=== PATIENT | female | born 1945 | race Caucasian/White ===

== ENCOUNTER 2017-08-10 19:31 | Inpatient (IN) | payer MEDICARE ==
[~2017-08-10] VITALS: Ht 162.6 cm; Wt 66.9 kg
[~2017-08-10 19:31] MED LIST: ACET325T14 PO; ASPI-621 PO; ASPI-682 PO; CEFD300C37 PO; CHOL400T2 PO; CYAN10005 PO; DOXY100T PO; ENOX40SY4 SQ; ERTA1VIA IV; FAMO-79 PO; HYDR-3240 PO; LEVE100020 PO; LEVE500T53 PO; MAGN400T26 PO; MULT1TAB76 PO; PRED20TA PO; SIMV40TA PO; SIMV40TA3 PO; VALP250C59 PO; ZONI50CA2 PO
[2017-08-10] MEDS ORDERED: ACETAMINOPHEN 325 MG TABLET PO PRN (22:00)
[2017-08-10] MEDS ORDERED: BISACODYL 10 MG SUPP PR PRN (22:00)
[2017-08-10] MEDS ORDERED: hydrALAzine 20 MG/ML, 1ML IVPush PRN (22:00)
[2017-08-10] MEDS ORDERED: ONDANSETRON 2MG/ML, 2ML IVPush PRN (22:00)
[2017-08-10] MEDS ORDERED: OXYcodone IR 5MG TABLET PO PRN (22:00)
[2017-08-10] MEDS ORDERED: POLYETHYLENE GLYCOL 17 GM PACKET PO PRN (22:00)
[2017-08-10] MEDS ORDERED: ENALAPRILAT 1.25 MG/ML, 2ML IVPush PRN (22:00)
[2017-08-10] MEDS ORDERED: LABETALOL 5MG/ML, 20ML IVPush PRN (22:00)
[2017-08-10] MEDS ORDERED: morphine SULFATE 10 MG/ML, 1ML IVPush PRN (22:00)
[2017-08-10] MEDS: PLEASE ENTER HEIGHT AND WEIGHT MC SCH (22:00)
[2017-08-10] MEDS: SIMVASTATIN 40 MG TABLET PO SCH (22:47)
[2017-08-10] MEDS: LEVETIRACETAM 500 MG TABLET PO SCH (22:48)
[2017-08-10 22:54] LABS: HEMOGLOBIN A1C 5.8 % (4.2-6.3)
[2017-08-10 22:56] LABS: FREE T4 (FREE THYROXINE) 0.87 ng/dL (0.76-1.46); THYROID STIMULATING HORMONE 2.01 mIU/L (0.358-3.740)
[2017-08-10] MEDS ORDERED: MAGNESIUM SULFATE PMX 2GM/50ML 50 ML IV ONE (23:00)
[2017-08-10 23:15] LABS: ANION GAP 11 mmol/L (5-15); CALCIUM 8.5 mg/dL (8.5-10.1); CHLORIDE 107 mmol/L (98-107); CREATININE 0.72 mg/dL (0.55-1.02)
[2017-08-10 23:27] LABS: MD YES; MEAN CORPUSCULAR HEMOGLOBIN 33.7 pg (27.0-34.8); MEAN CORPUSCULAR HGB CONC 33.7 g/dL (32.4-35.8); MEAN PLATELET VOLUME 10.3 fL (7.4-10.4); PLATELET COUNT 121 x10^3/uL (130-400); RED BLOOD COUNT 3.91 x10^6/uL (3.82-5.3); RED CELL DISTRIBUTION WIDTH 13.7 % (9.6-15.2)
[2017-08-10 23:29] LABS: ANISOCYTOSIS 1+; BAND#(MANUAL) 0.27 x10^3/uL; BANDS%(MANUAL) 2 % (0-7); LYMPH#(MANUAL) 3.56 x10^3/uL (1-3.4); LYMPHS% (MANUAL) 26 % (22-44); MONOS#(MANUAL) 0.41 x10^3/uL (0.3-2.7); MONOS% (MANUAL) 3 % (2-9); REACTIVE LYMPHS # (MANUAL) 0.41 x10^3/uL (0-0); REACTIVE LYMPHS % (MANUAL) 3 % (0-0); SEG#(MANUAL) 9.04 x10^3/uL (1.8-6.8); SEGS% (MANUAL) 66 % (42-75)
[2017-08-10 23:31] LABS: <PLATELET ESTIMATE> ADEQUATE; <PLT MORPHOLOGY> NORMAL PLT MORPH
[2017-08-11 04:00] VITALS: BP 113/61
[2017-08-11 04:39] LABS: BASOPHILS # (AUTO) 0.05 x10^3/uL (0-0.1); BASOPHILS % (AUTO) 0 % (0-1); EOSINOPHILS # (AUTO) 0.07 x10^3/uL (0-0.4); EOSINOPHILS % (AUTO) 1 % (1-7); LYMPHOCYTES # (AUTO) 3.71 x10^3/uL (1-3.4); LYMPHOCYTES % (AUTO) 28 % (22-44); MD NO; MEAN CORPUSCULAR HEMOGLOBIN 33.4 pg (27.0-34.8); MEAN CORPUSCULAR HGB CONC 33.7 g/dL (32.4-35.8); MEAN CORPUSCULAR VOLUME 99.2 fL (80-100); MEAN PLATELET VOLUME 9.8 fL (7.4-10.4); MONOCYTES # (AUTO) 1.42 x10^3/uL (0.2-0.8); MONOCYTES % (AUTO) 11 % (2-9); NEUTROPHILS # (AUTO) 7.93 x10^3/uL (1.8-6.8); NEUTROPHILS % (AUTO) 60 % (42-75); PLATELET COUNT 213 x10^3/uL (130-400); RED BLOOD COUNT 3.56 x10^6/uL (3.82-5.3); RED CELL DISTRIBUTION WIDTH 13.8 % (9.6-15.2)
[2017-08-11 04:48] LABS: CHLORIDE 106 mmol/L (98-107)
[2017-08-11 04:55] LABS: ALANINE AMINOTRANSFERASE 12 U/L (12-78); ALBUMIN 3.1 g/dL (3.4-5.0); ALKALINE PHOSPHATASE 61 U/L (45-117); ANION GAP 9 mmol/L (5-15); BILIRUBIN,TOTAL 0.9 mg/dL (0.2-1.0); CALCIUM 8.5 mg/dL (8.5-10.1); CHOLESTEROL, TOTAL 136 mg/dL (140-239); CREATININE 0.63 mg/dL (0.55-1.02); HDL CHOLESTEROL (DIRECT) 58 mg/dL (40-60); TOTAL PROTEIN 6.7 g/dL (6.4-8.2); TRIGLYCERIDES 164 mg/dL (50-200); VLDL CHOLESTEROL 33 mg/dL (0-25)
[2017-08-11 04:56] LABS: CHOL/HDL RATIO 2.3; HDL CHOL % 43 % (28-40); LDL CHOLESTEROL,CALCULATED 45 mg/dL (54-169); LDL/HDL RATIO 0.8 (0.5-3.0)
[2017-08-11] MEDS: PLEASE ENTER HEIGHT AND WEIGHT MC SCH ×2 (06:00→07:18)
[2017-08-11] MEDS ORDERED: CHOLECALCIFEROL 400 UNITS TABLET PO SCH (09:00)
[2017-08-11] MEDS: FAMOTIDINE 20 MG TABLET PO SCH ×2 (09:00→21:01)
[2017-08-11] MEDS: FAMOTIDINE 20 MG/2 ML IVPush SCH ×2 (09:05→21:00)
[2017-08-11] MEDS: LEVETIRACETAM 500 MG TABLET PO SCH ×2 (09:06→21:01)
[2017-08-11] MEDS: CYANOCOBALAMIN 1,000 MCG TABLET PO SCH (09:06)
[2017-08-11] MEDS: SENNA/DOCUSATE TABLET PO SCH (09:06)
[2017-08-11] MEDS: CHOLECALCIFEROL 1,000 UNIT TABLET PO SCH (09:07)
[2017-08-11] MEDS: MAGNESIUM OXIDE 400 MG TABLET PO SCH (09:07)
[2017-08-11] MEDS: DEXAMETHASONE 4 MG TABLET PO SCH ×3 (10:21→21:00)
[2017-08-11] MEDS: SIMVASTATIN 40 MG TABLET PO SCH (21:00)
[2017-08-12 04:00] VITALS: BP 123/65
[2017-08-12 04:31] LABS: BASOPHILS # (AUTO) 0.01 x10^3/uL (0-0.1); BASOPHILS % (AUTO) 0 % (0-1); EOSINOPHILS % (AUTO) 0 % (1-7); LYMPHOCYTES # (AUTO) 1.23 x10^3/uL (1-3.4); LYMPHOCYTES % (AUTO) 18 % (22-44); MD NO; MEAN CORPUSCULAR HEMOGLOBIN 33.7 pg (27.0-34.8); MEAN CORPUSCULAR HGB CONC 33.5 g/dL (32.4-35.8); MEAN CORPUSCULAR VOLUME 100.6 fL (80-100); MEAN PLATELET VOLUME 9.9 fL (7.4-10.4); MONOCYTES # (AUTO) 0.04 x10^3/uL (0.2-0.8); MONOCYTES % (AUTO) 1 % (2-9); NEUTROPHILS # (AUTO) 5.42 x10^3/uL (1.8-6.8); NEUTROPHILS % (AUTO) 81 % (42-75); PLATELET COUNT 201 x10^3/uL (130-400); RED BLOOD COUNT 3.99 x10^6/uL (3.82-5.3); RED CELL DISTRIBUTION WIDTH 13.7 % (9.6-15.2)
[2017-08-12 04:41] LABS: CHLORIDE 103 mmol/L (98-107)
[2017-08-12 04:50] LABS: ALANINE AMINOTRANSFERASE 12 U/L (12-78); ALBUMIN 3.2 g/dL (3.4-5.0); ALKALINE PHOSPHATASE 66 U/L (45-117); ANION GAP 7 mmol/L (5-15); CALCIUM 9.1 mg/dL (8.5-10.1); CREATININE 0.52 mg/dL (0.55-1.02); TOTAL PROTEIN 7.3 g/dL (6.4-8.2)
[2017-08-12 04:55] LABS: MICROSCOPIC AUTO
[2017-08-12 04:57] LABS: CULTURE INDICATED? YES
[2017-08-12] MEDS: SENNA/DOCUSATE TABLET PO SCH (09:00)
[2017-08-12] MEDS: DEXAMETHASONE 4 MG TABLET PO SCH ×3 (10:00→21:45)
[2017-08-12] MEDS: FAMOTIDINE 20 MG TABLET PO SCH ×2 (10:00→21:45)
[2017-08-12] MEDS: CYANOCOBALAMIN 1,000 MCG TABLET PO SCH (10:00)
[2017-08-12] MEDS: LEVETIRACETAM 500 MG TABLET PO SCH ×2 (10:00→21:45)
[2017-08-12] MEDS: CHOLECALCIFEROL 1,000 UNIT TABLET PO SCH (10:01)
[2017-08-12] MEDS: MAGNESIUM OXIDE 400 MG TABLET PO SCH (10:02)
[2017-08-12 19:30] VITALS: BP 123/87
[2017-08-12] MEDS: SIMVASTATIN 40 MG TABLET PO SCH (21:45)
[2017-08-13 02:58] VITALS: BP 91/60
[2017-08-13 05:46] LABS: ALBUMIN 3.1 g/dL (3.4-5.0); ANION GAP 9 mmol/L (5-15); CALCIUM 9.4 mg/dL (8.5-10.1); CHLORIDE 104 mmol/L (98-107)
[2017-08-13 05:50] LABS: ALANINE AMINOTRANSFERASE 17 U/L (12-78); ALKALINE PHOSPHATASE 63 U/L (45-117); BASOPHILS # (AUTO) 0.02 x10^3/uL (0-0.1); BASOPHILS % (AUTO) 0 % (0-1); BILIRUBIN,TOTAL 0.9 mg/dL (0.2-1.0); CREATININE 0.65 mg/dL (0.55-1.02); EOSINOPHILS % (AUTO) 0 % (1-7); LYMPHOCYTES # (AUTO) 1.13 x10^3/uL (1-3.4); LYMPHOCYTES % (AUTO) 8 % (22-44); MD NO; MEAN CORPUSCULAR HEMOGLOBIN 33.8 pg (27.0-34.8); MEAN CORPUSCULAR HGB CONC 33.4 g/dL (32.4-35.8); MEAN CORPUSCULAR VOLUME 100.9 fL (80-100); MEAN PLATELET VOLUME 9.8 fL (7.4-10.4); MONOCYTES # (AUTO) 0.24 x10^3/uL (0.2-0.8); MONOCYTES % (AUTO) 2 % (2-9); NEUTROPHILS # (AUTO) 13.32 x10^3/uL (1.8-6.8); NEUTROPHILS % (AUTO) 91 % (42-75); PLATELET COUNT 210 x10^3/uL (130-400); RED BLOOD COUNT 3.88 x10^6/uL (3.82-5.3); RED CELL DISTRIBUTION WIDTH 13.9 % (9.6-15.2); TOTAL PROTEIN 7.1 g/dL (6.4-8.2)
[2017-08-13 07:30] VITALS: BP 91/61
[2017-08-13] MEDS: CEFTRIAXONE PMX 1GM/50ML 50 ML IV SCH ×2 (08:00→08:41)
[2017-08-13] MEDS: LEVETIRACETAM 500 MG TABLET PO SCH (08:42)
[2017-08-13] MEDS: MAGNESIUM OXIDE 400 MG TABLET PO SCH (08:42)
[2017-08-13] MEDS: DEXAMETHASONE 4 MG TABLET PO SCH (08:42)
[2017-08-13] MEDS: CHOLECALCIFEROL 1,000 UNIT TABLET PO SCH (08:42)
[2017-08-13] MEDS: CYANOCOBALAMIN 1,000 MCG TABLET PO SCH (08:42)
[2017-08-13] MEDS: SENNA/DOCUSATE TABLET PO SCH (08:43)
[2017-08-13] MEDS: FAMOTIDINE 20 MG TABLET PO SCH (08:43)
[2017-08-13] MEDS ORDERED: LEVE500T53 PO (12:27)
[2017-08-13] MEDS ORDERED: DEXA4TAB PO (12:27)
[2017-08-13] MEDS ORDERED: ZONISAMIDE 50 MG CAPSULE PO SCH (12:30)
== END 2017-08-13 13:30 | disposition home health service (06) | DRG 64 ==
LOC: CCU 20:28 → 4NOR 08-12 16:55
PROVIDERS: ADMIT Internal Medicine; ATTEND Internal Medicine
DX: I62.00 Nontraumatic subdural hemorrhage, unspecified (principal); G93.40 Encephalopathy, unspecified; G40.119 Localization-related (focal) (partial) symptomatic epilepsy and epileptic syndromes with simple partial seizures, intractable, without status epilepticus; J96.10 Chronic respiratory failure, unspecified whether with hypoxia or hypercapnia; R41.4 Neurologic neglect syndrome; W19.XXXA Unspecified fall, initial encounter; E78.5 Hyperlipidemia, unspecified; E53.8 Deficiency of other specified B group vitamins; G83.84 Todd's paralysis (postepileptic); Z79.899 Other long term (current) drug therapy; Z85.118 Personal history of other malignant neoplasm of bronchus and lung; Z85.72 Personal history of non-Hodgkin lymphomas; Z86.73 Personal history of transient ischemic attack (TIA), and cerebral infarction without residual deficits; Z87.891 Personal history of nicotine dependence; Z90.2 Acquired absence of lung [part of]; Y93.89 Activity, other specified; Y92.89 Other specified places as the place of occurrence of the external cause; Y99.8 Other external cause status; Z88.0 Allergy status to penicillin; Z88.8 Allergy status to other drugs, medicaments and biological substances
CPT/HCPCS: 36415; 70551; 80048; 80053; 80061; 81001; 83036; 83735; 84439; 84443; 85025; 87077; 87081; 87086; 87186; 93306; 93880; 99285; J0696; J3475; S0028

== ENCOUNTER → 2017-08-21 | Outpatient (CLI) | payer MEDICARE ==
[~2017-08-21] MED LIST changes: +DEXA4TAB PO
== END | disposition home or self-care (01) ==
LOC: CFH 15:43
PROVIDERS: ATTEND Neurological Surgery
DX: S06.5X0A Traumatic subdural hemorrhage without loss of consciousness, initial encounter (principal); G31.9 Degenerative disease of nervous system, unspecified; X58.XXXA Exposure to other specified factors, initial encounter; Y93.89 Activity, other specified; Y92.89 Other specified places as the place of occurrence of the external cause; Y99.8 Other external cause status
CPT/HCPCS: 70450

== ENCOUNTER → 2017-09-17 | Outpatient (CLI) | payer MEDICARE | LOC: CFH 12:41 | PROVIDERS: ATTEND Neurological Surgery | DX: I62.03 Nontraumatic chronic subdural hemorrhage (principal) | CPT/HCPCS: 70450 ==